=== PATIENT | female | born 1950 | race Caucasian/White ===

== ENCOUNTER 2021-03-28 16:07 | Emergency (ER) | payer MEDICARE, SELFPAY ==
[2021-03-28 16:20] VITALS: BP 162/90; PULSE 109; RESP 16; TEMP 36.9; O2SAT 98
--- NOTE | 2021-03-28 16:21 | ED.URI ---
HPI - URI/Sore Throat General Chief Complaint: Upper Respiratory Infection Stated Complaint: ITCHY WATERY EYES/SINUS DRAINAGE Source: patient and RN notes reviewed Limitations: no limitations History of Present Illness HPI Narrative: The vaccinated patient, non-smoker/nondrinker, presents with congestion .Patient states since attending a viewing over the weekend, she now has a shorter, couple day history of nasal congestion, postnasal drip and watery eyes. No fever, CP, loss of taste/smell, S OB, chest pain, vomiting/diarrhea, , rash. Symptoms are mild seemingly worse throughout the day with housework. Point of care testing for Covid is early/strongly positive. Related Data Home Medications Medication Instructions Recorded Confirmed atorvastatin 03/28/21 Allergies Allergy/AdvReac Type Severity Reaction Status Date / Time No Known Allergies Allergy Verified 03/28/21 16:16 Review of Systems Review of Systems: General/Constitutional: No weight loss,fever Eyes: N0: Redness,discharge Ears/Nose/Throat: No: Epistaxis,ear discharge Respiratory: Denies: Hemoptysis Gastrointestinal: No Vomiting, Bleeding-rectal Skin: No Lumps, eruption Neurologic: No Focal Weakness,Sz Hematologic: Denies: Petechiae/Purpura Psychiatric: No: Suicida ideationl All Other Systems: Reviewed and Negative PMFSH Comments At time of signature, agree with nursing past medical, surgical, social and family history. There is no relevant family history pertinent to the presenting complaint Exam Narrative: General Appearance: Well nourished EYE: PERRLA, Conjunctiva clear Ears: Auditory canal normal, Nose: Rhinorrhea, Mucousal erythema Mouth/Throat: MM moist, Neck: Supple, Respiratory: No respiratory distress, airway patent Cardiovascular: RRR, No JVD Musculoskeletal: Normal strength, Warm, Dry Neurological: A&O x3, CN II-XII intact Psychiatric: Normal mood, Normal affect The patient agrees, in light of health emergency- in my medical judgement, only a personal chat was preferable to fully undress & examine the patient exhibiting potential COVID symptoms, in order to limit risk of cross infection. Course Vital Signs Vital signs: Vital Signs Temperature 98.5 F 03/28/21 16:20 Pulse Rate 109 H 03/28/21 16:20 Respiratory Rate 16 03/28/21 16:20 Blood Pressure 162/90 H 03/28/21 16:20 Pulse Oximetry 98 03/28/21 16:20 Temperature 98.5 F 03/28/21 16:20 Pulse Rate 109 H 03/28/21 16:20 Respiratory Rate 16 03/28/21 16:20 Blood Pressure 162/90 H 03/28/21 16:20 Pulse Oximetry 98 03/28/21 16:20 MDM - URI/Sore Throat Lab Data Labs: Lab Results 03/28/21 Range/Units 16:18 POC SARS CoV-2 Ag Positive (Negative) Discharge Plan Discharge Clinical Impression: COVID Patient Disposition: Home, Self-Care Condition: Stable Instructions: COVID-19 (Coronavirus Disease 2019) (ED) Additional Instructions: Isolate for 10 days, INFORM and quarantine close contacts similarly At pharmacy get supplements vitamins D, C, B, zinc and daily baby aspirin. Also consider getting pulse oximetry, and Watt rapid [binax] antigen test [ for family] Go to hospital if worsens, or if pulse oximetry<94% ['A' grade, yours was 98% today] You may use OTC preparations [like Flonase, Mucinex, antihistamines (Claritin, etc). Prescriptions: No Action atorvastatin 10 mg tablet RF: 0 Follow-up/Referrals: PHYSICIAN NOT ON STAFF,NONSTAFF [Primary Care Provider] -
== END 2021-03-28 17:01 | disposition home or self-care (01) ==
PROVIDERS: Emergency Provider Emergency Medicine
DX: U07.1 COVID-19 (principal); E78.00 Pure hypercholesterolemia, unspecified
CPT/HCPCS: 87426; 99213; C9803; G0463